=== PATIENT | male | born 1980 | race Two or more races ===

== ENCOUNTER 2020-04-18 14:40 | Outpatient (CLI) | payer OTHER ==
[~2020-04-18] VITALS: Ht 175.3 cm; Wt 111.1 kg
== END 2020-04-18 16:00 | disposition home or self-care (01) ==
LOC: OFIC 805 14:40
PROVIDERS: ATTEND Otolaryngology Otology & Neurotology
DX: H81.12 Benign paroxysmal vertigo, left ear (principal)